=== PATIENT | male | born 2005 | race Caucasian/White ===

== ENCOUNTER 2024-09-16 19:23 | Emergency (ER) | payer OTHER ==
[~2024-09-16] VITALS: Ht 177.8 cm; Wt 108.5 kg
[2024-09-17 00:51] VITALS: TEMP 97.5
[2024-09-17 04:00] VITALS: BP 106/55; O2SAT 97
== END 2024-09-17 04:14 | disposition left against medical advice (07) ==
LOC: M ED 19:23
DX: Z53.21 Procedure and treatment not carried out due to patient leaving prior to being seen by health care provider (principal)